=== PATIENT | male | born 1980 | race Hispanic/Latino ===

== ENCOUNTER 2019-09-07 02:02 | Emergency (ER) | payer OTHER | END 2019-09-07 02:25 | LOC: EDH 02:02 | DX: Z02.83 Encounter for blood-alcohol and blood-drug test (principal) | CPT/HCPCS: 36415 ==

== ENCOUNTER 2020-03-02 14:26 | Emergency (ER) | payer OTHER | END 2020-03-02 15:36 | LOC: EDH 14:26 | DX: R79.89 Other specified abnormal findings of blood chemistry (principal); E11.9 Type 2 diabetes mellitus without complications; Z72.0 Tobacco use ==